=== PATIENT | female | born 1975 | race Caucasian/White ===

== ENCOUNTER 2017-08-23 15:55 | Emergency (ER) | payer MEDICAID ==
[~2017-08-23] VITALS: Ht 157.5 cm; Wt 56.9 kg
[2017-08-23 17:54] VITALS: Ht 157.5 cm; Wt 56.9 kg
--- NOTE | 2017-08-23 19:09 | ERD ---
ER Documentation Chief Complaint Chief Complaint Complains of left toe pain x 2 days HPI 42-year-old female, previously healthy, presents to the emergency department complaining of progressive pain of the left great toenail for 1 month. The pain is sharp, constant, 7/10. Worsened by closed shoes and direct pressure. The symptoms are associated with local edema, erythema and warmth. The patient denies fevers, chills. She is requesting a partial ROS A 12-point review of systems was performed and negative other than presented in the history of present illness. SYSTEMIC symptoms: no fever, chills, no night sweats, no weight loss EYE symptoms: No blurred vision, no eye discharge OTOLARYNGEAL symptoms: No hearing loss. No ear pain, no sore throat CARDIOVASCULAR symptoms: No chest pain or discomfort, no palpitations. PULMONARY symptoms: No dyspnea, no cough, no wheezing. GASTROINTESTINAL symptoms: No abdominal pain, no nausea, no vomiting, no diarrhea MUSCULOSKELETAL symptoms: No arthralgias, no muscle aches. NEUROLOGY symptoms: No confusion, no syncope, no numbness or tingling. SKIN: No rashes Medications Home Meds Active Scripts Hydrocodone/Acetaminophen ([place] 5-325 Tablet) 1 Each Tablet, 1 TAB PO Q6H Y for PAIN, #12 TAB Prov:RICKY CARPENTER MD 08/23/17 Sulfamethoxazole/Trimethoprim* (Bactrim Ds* Tablet) 1 Each Tablet, 1 TAB PO BID for 5 Days, #10 TAB Prov:RICKY CARPENTER MD 08/23/17 Allergies Allergies: Coded Allergies: No Known Allergy (Unverified , 03/16/14) PMhx/Soc History of Surgery: Yes (C/S X1) Anesthesia Reaction: No Hx Neurological Disorder: No Hx Respiratory Disorders: No Hx Cardiac Disorders: No Hx Psychiatric Problems: No Hx Miscellaneous Medical Probl: No Hx Alcohol Use: No Hx Substance Use: No Hx Tobacco Use: No Physical Exam Vitals Vital Signs Date Time Temp Pulse Resp B/P Pulse Ox O2 Delivery O2 Flow Rate FiO2 08/23/17 17:54 99.3 72 20 131/70 98 Physical Exam Patient is in no acute distress, vital signs stable. Alert and fully oriented. EYES: PERRLA, EOMI, Sclera and conjunctiva appear normal. EARS: Canals clear, tympanic membranes WNL THROAT: Normal oropharynx. NECK: Supple, No lymphadenopathy. Full ROM without pain or tenderness. HEART: RRR, no rubs, murmurs, clicks or gallops. LUNGS: Clear to auscultation. ABDOMEN: Soft, non-tender without masses or hepatosplenomegaly. EXTREMITIES: Left foot: Great toe: Medial toenail with erythema, edema and discharge. BACK: Full ROM, no deformity, normal back exam NEURO: Cranial nerves grossly intact, no motor or sensory deficit Results 24 hrs Current Medications Medications (Trade) Dose Ordered Sig/Marcell Route PRN Reason Start Time Stop Time Status Last Admin Dose Admin Bupivacaine HCl (Marcaine 0.25% (Mpf) 10 ml) 10 ml ONCE ONCE INJ 08/23/17 19:30 08/23/17 19:31 Lidocaine (Xylocaine 1% (Mdv) 20 ml) 8 ml ONCE ONCE SC 08/23/17 19:30 08/23/17 19:31 Procedures/MDM 42-year-old previously healthy, presents for evaluation and management of left ingrown toenail Vital signs stable, Physical exam consistent with a left medial ingrown toenail. Differential diagnosis include but not limited to: Abscess, paronychia. Low suspicion for systemic infection. Physical examination and clinical presentation consistent most likely with left ingrown toenail Ingrown toenail removal procedure Location: Left big toenail Technique: Patient in supine position, toe prepped with povidone-iodine solution. A standard digital block performed with 1 percent lidocaine (without epinephrine) achieving adequate anesthesia. Iris scissors slid under the cuticle the nail plate from the proximal nail fold. Bandage scissors used to cut the distal end of the nail straight back beneath the proximal nail fold, lateral pointing spicule removed, excessive lateral granulation tissue removed with silver nitrate. Adequate homeostasis, bandage with antibiotic ointment applied. Complications: None. Neurovascularly intact post procedure. 48 hour wound check. Scar minimization instructions given. During the ED course the patient remained stable, no new complaints. Results and clinical impression discussed with patient who agrees with management. The patient is stable to be treated outpatient and will be discharged home with a Rx for Bactrim and [place], some side effects of prescribed medications (headache, rash, nausea, vomiting, diarrhea, drowsiness, habituation, bleeding, hypertension, interactions with other medications) were reviewed. The patient was instructed to follow up with the primary care provider in the next 48h. If symptoms persist, worsen or new symptoms develop, then patient should return to the ED immediately. Instructions explained and given directly by me to the patient in Montenegrin with acknowledgment and demonstrated understanding. Disclaimer: Inadvertent spelling and grammatical errors are likely due to EHR/ dictation software use and do not reflect on the overall quality of patient care. Also, please note that the electronic time recorded on this note does not necessarily reflect the actual time of the patient encounter. Departure Diagnosis: Primary Impression: Ingrowing toenail of left foot Condition: Stable Additional Instructions: Muchas barron por [facility] para porras servicio. Esperamos que en porras visita a la jose antonio de emergencia porras problema medico haya sido solucionado y que se sienta mucho mejor. Para estar seguros que porras mejoria sigue en proceso, le pedimos el favor de hacer bree hugh de seguimiento medico con porras doctor primario en los proximos 2-4 cruz. Lleve con usted estos documentos y las medicinas recetadas. Si georges sintomas empeoran y no puede chiquis a porras doctor, por favor regrese a jose antonio de emergencia. En juan antonio que usted no tenga un mdico de atencin primaria: Llame al mdico o clnica comunitaria de referencia que aparece abajo ashley las horas de consultorio para hacer bree hugh para que le vean. CLINICAS: [facility] [phone] [facility] [phone] [facility] [phone] [address] [place] [phone] [place] [id number] [phone] [facility] [phone] MD Aug 23, 2017 19:09
[2017-08-23] MEDS ORDERED: SULF1TAB31 PO (19:20)
[2017-08-23] MEDS ORDERED: HYDR-906 PO (19:20)
[2017-08-23] MEDS ORDERED: LIDOCAINE 1% (MDV) 20 ML INJ SC ONE (19:30)
[2017-08-23] MEDS ORDERED: BUPIVACAINE 0.25% (MPF) 10 ML 10 ML VIAL INJ ONE (19:30)
[2017-08-23] MEDS ORDERED: BUPIVACAINE 0.25% (MPF) 30 ML INJ INJ ONE (19:30)
[2017-08-23 20:28] VITALS: BP 128/70; PULSE 78; RESP 20; TEMP 98.8
== END 2017-08-23 20:28 | disposition home or self-care (01) ==
LOC: FTE 15:55
DX: L60.0 Ingrowing nail (principal)
CPT/HCPCS: 11750; Z7502; Z7610